=== PATIENT | male | born 1995 | race Caucasian/White ===

== ENCOUNTER 2025-09-21 22:29 | Emergency (ER) | payer BC ==
[2025-09-21] MEDS ORDERED: Lidocaine 1% PF 5 ML VIAL ONE ×2 (22:40→22:53)
[2025-09-21] MEDS ORDERED: Bacitracin 1 PK ONE (23:34)
[2025-09-21] MEDS ORDERED: HYDROcodone/Acetaminophen 5/325 mg Tablet ONE (23:34)
== END 2025-09-21 23:49 | disposition home or self-care (01) ==
LOC: ERS 22:29
DX: S61.210A Laceration without foreign body of right index finger without damage to nail, initial encounter (principal); S61.212A Laceration without foreign body of right middle finger without damage to nail, initial encounter; S61.214A Laceration without foreign body of right ring finger without damage to nail, initial encounter; W25.XXXA Contact with sharp glass, initial encounter
CPT/HCPCS: 12002; 99282